=== PATIENT | female | born 1990 | race African-American/Black ===

== ENCOUNTER 2019-06-03 11:03 | Emergency (ER) | payer SELFPAY ==
[2019-06-03] MEDS ORDERED: Lorazepam 2 MG/ML VIAL ONE (11:22)
[2019-06-03] MEDS ORDERED: Fentanyl 100 MCG/2 ML VIAL ONE (11:22)
--- NOTE | 2019-06-03 12:15 | ULT ---
PELVIC SONOGRAM TRANSABDOMINAL AND TRANSVAGINAL IMAGING WITH DUPLEX EVALUATION: Date: 06/03/19 HISTORY: Pelvic pain and bleeding. FINDINGS: Urinary bladder is incompletely distended. Uterus has a heterogeneous echotexture and measures up to 7.6 cm. No intrauterine gestational sac visible. Endometrium is 0.3 cm. No free fluid. Each ovary has a normal appearance with small follicles and good color and spectral Do ppler flow. IMPRESSION: No evidence of intrauterine gestation. No abnormalities are demonstrated. POS: [facility]
[2019-06-04 19:13] LABS: Chlamydia by PCR Not Detected (NotDetected); GC by PCR Not Detected (NotDetected)
== END 2019-06-03 13:12 | disposition home or self-care (01) ==
LOC: ERS 11:03
DX: R10.2 Pelvic and perineal pain (principal); R10.31 Right lower quadrant pain
CPT/HCPCS: 76856; 87480; 87491; 87510; 87591; 87660; 96374; J2060; J3010

== ENCOUNTER 2019-08-26 04:01 | Emergency (ER) | payer SELFPAY ==
[2019-08-26] MEDS ORDERED: Morphine 4 MG/ML VIAL ONE (04:09)
[2019-08-26] MEDS ORDERED: Ondansetron PF 4 MG/2 ML Vial ONE (04:09)
--- NOTE | 2019-08-26 07:28 | ULT ---
PRELIMINARY REPORT/[facility]/AFTER HOURS PROCEDURE RIGHT UPPER QUADRANT LIMITED ABDOMEN ULTRASOUND: CLINICAL HISTORY: Epigastric pain, N/V. TECHNIQUE: Real-time ultrasound of the right upper quadrant with image documentation. COMPARISON: None provided. FINDINGS: LIVER: Unremarkable. Measures 16.7 cm. GALLBLADDER: No gallstone. No wall thickening. No pericholecystic fluid. Gallbladder sludge is noted with a negative sonographic Hogan sign. COMMON BILE DUCT: No dilation. Measures 2.8 mm. PANCREAS: Partially obscured by overlying bowel gas. RIGHT KIDNEY: Unremarkable. No hydronephrosis. Measures 9.6 cm. IMPRESSION: Gallbladder sludge with no evidence for acute cholecystitis. ELECTRONICALLY SIGNED BY: Ji Abreu MD Aug 26, 2019 4:53:11 AM ESTIMATOR This report is intended for review by the ordering physician only, in accordance of law. If you recei ve this report in error, please call [facility] at [phone]. FINAL REPORT EMERGENCY/AFTER HOURS: ULTRASOUND ABDOMEN LIMITED: (RIGHT UPPER QUADRANT) 08/26/2019 HISTORY: 28-year-old female with epigastric pain, nausea, and emesis. FINDINGS: Gallbladder: Normal wall thickness. No gallstones or sludge identified. No pericholecystic fluid. Liver: Normal parenchymal echogenicity. Right kidney: No hydronephrosis. Pancreas: Visualized, with no gross sonographic abnormality identified (although ultrasound is relati vely insensitive for the detection of pancreatic pathology compared to CT and MRI.). Common duct caliber: 2 mm. No major disagreement with preliminary report by [facility]. IMPRESSION: Normal. CODE QA Transcribed Date/Time: 08/26/2019 8:39 AM
== END 2019-08-26 05:27 | disposition home or self-care (01) ==
LOC: ERS 04:01
DX: K80.20 Calculus of gallbladder without cholecystitis without obstruction (principal)
CPT/HCPCS: 76705; 96374; 96375; J2270; J2405

== ENCOUNTER 2019-08-30 16:54 | Inpatient (IN) | payer SELFPAY ==
[2019-08-30] MEDS ORDERED: Ondansetron PF 4 MG/2 ML Vial SLOW IVP PRN (17:24)
[2019-08-30] MEDS: D5 1/2 NS w/20 mEq KCL 1,000 ML IV SCH (18:14)
[2019-08-30] MEDS: ceFOXitin 2 GM/50 ML Duplex BAG IVPB SCH (18:14)
[2019-08-30 18:29] VITALS: BMI 29.2
[2019-08-30] MEDS: Morphine 4 MG/ML VIAL SLOW IVP PRN (19:03)
[2019-08-30] MEDS: Morphine 2 MG/ML SYRINGE SLOW IVP PRN (21:54)
[2019-08-31] MEDS ORDERED: Morphine 4 MG/ML VIAL IM PRN (00:57)
[2019-08-31] MEDS ORDERED: Morphine 2 MG/ML SYRINGE IM PRN (00:57)
[2019-08-31] MEDS ORDERED: HYDROcodone/Acetaminophen 10/325 mg Tablet PO SCH (01:00)
[2019-08-31] MEDS: ceFOXitin 2 GM/50 ML Duplex BAG IVPB SCH (01:35)
[2019-08-31 03:19] VITALS: BP 127/69; TEMP 98
[2019-08-31] MEDS: Morphine 4 MG/ML VIAL SLOW IVP PRN (03:26)
[2019-08-31] MEDS: D5 1/2 NS w/20 mEq KCL 1,000 ML IV SCH (03:26)
[2019-08-31 05:47] LABS: ALT (SGPT) 7 U/L (8-55); AST (SGOT) 12 U/L (5-34); Albumin 3.6 g/dL (3.5-5.0); Alkaline Phosphatase 49 U/L (40-110); Bilirubin, Direct 0.1 mg/dL (0.1-0.3); Bilirubin, Total 0.3 mg/dL (0.2-1.2); Protein, Total 6.4 g/dL (6.0-8.3)
[2019-08-31] MEDS: Morphine 2 MG/ML SYRINGE SLOW IVP PRN (06:43)
[2019-08-31] MEDS ORDERED: ceFOXitin 2 GM/50 ML Duplex BAG ONE (09:50)
[2019-08-31] MEDS ORDERED: Rocuronium Bromide 10 MG/ML (10ML VIAL) ONE (10:17)
[2019-08-31] MEDS ORDERED: Glycopyrrolate 0.2 MG/ML 5 ML SYRINGE ONE (10:17)
[2019-08-31] MEDS ORDERED: Dexamethasone 20 MG/5 ML VIAL ONE (10:17)
[2019-08-31] MEDS ORDERED: Ondansetron PF 4 MG/2 ML Vial ONE (10:17)
[2019-08-31] MEDS ORDERED: Ketorolac Tromethamine 30 MG/ML VIAL ONE (10:17)
[2019-08-31] MEDS ORDERED: PROPOFOL 200 MG/20 ML VIAL ONE (10:17)
[2019-08-31] MEDS ORDERED: Lidocaine 1% PF 5 ML VIAL ONE (10:17)
[2019-08-31] MEDS ORDERED: Fentanyl 100 MCG/2 ML VIAL ONE ×3 (10:20→11:58)
[2019-08-31] MEDS ORDERED: Lidocaine 1% w/Epinephrine 1:100K 20 ML VIAL ONE (10:37)
[2019-08-31] MEDS ORDERED: Bupivacaine 0.25% HCL 30 ML VIAL ONE (10:37)
[2019-08-31] MEDS ORDERED: Calcium Carbonate 500 MG ChewTAB PO PRN (11:41)
[2019-08-31] MEDS ORDERED: Ondansetron PF 4 MG/2 ML Vial IVP PRN (11:41)
[2019-08-31] MEDS ORDERED: Dextrose 50% Abboject 50 ML SYRINGE SLOW IVP PRN (11:41)
[2019-08-31] MEDS ORDERED: Morphine 4 MG/ML VIAL SLOW IVP PRN (11:41)
[2019-08-31] MEDS ORDERED: Promethazine HCl 25 MG/ML VIAL IM PRN ×2 (11:41→11:54)
[2019-08-31] MEDS ORDERED: hydrALAZINE 20 MG/ML VIAL SLOW IVP PRN (11:41)
[2019-08-31] MEDS ORDERED: Dextrose 5% in Water 1,000 ML IV PRN (11:41)
[2019-08-31] MEDS ORDERED: Mag-Al 1200 mg/1200 mg/30 ML UDCUP PO PRN (11:41)
[2019-08-31] MEDS ORDERED: Morphine 2 MG/ML SYRINGE SLOW IVP PRN (11:41)
[2019-08-31] MEDS ORDERED: D5 1/2 NS w/20 mEq KCL 1,000 ML IV SCH (11:45)
[2019-08-31] MEDS ORDERED: SUGAMMADEX SODIUM 200 MG/2 ML VIAL ONE (11:48)
[2019-08-31] MEDS ORDERED: Ondansetron HCl/PF 4 MG/2 ML Vial IVP PRN (11:54)
[2019-08-31] MEDS ORDERED: Meperidine HCl/PF 25 MG/ML VIAL SLOW IVP PRN (11:54)
[2019-08-31] MEDS ORDERED: Promethazine HCl 25 MG/ML VIAL SLOW IVP PRN (11:54)
[2019-08-31] MEDS ORDERED: Ketorolac Tromethamine 30 MG/ML VIAL IVP SCH (12:00)
--- NOTE | 2019-08-31 13:20 | HP ---
CHIEF COMPLAINT: Right upper quadrant abdominal pain. HISTORY OF PRESENT ILLNESS: The patient is a 28-year-old female, who reports a 10-day history of right upper quadrant pain radiating to the back associated with nausea and vomiting. She came to the emergency room, where an ultrasound showed multiple cholelithiasis. She denies dark urine or light stools. PAST MEDICAL HISTORY: She is otherwise healthy. PAST SURGICAL HISTORY: She has had a section. MEDICATIONS: None. ALLERGIES: SHE HAS AN ALLERGY TO TRAMADOL. SOCIAL HISTORY: She is single. Unemployed. Smokes 1 pack per week. No alcohol. FAMILY HISTORY: Noncontributory. PHYSICAL EXAMINATION: VITAL SIGNS: Temperature 98, pulse 60, and blood pressure 127/69. GENERAL: Well-developed, well-nourished female, in no apparent distress. HEENT: No jaundice. LUNGS: Clear. HEART: Regular rate and rhythm. ABDOMEN: Soft and nondistended. She is tender in the right upper quadrant. No palpable mass. EXTREMITIES: Unremarkable. LABORATORY DATA: Her white count is 9.8, H and H 11 and 36, and platelet count 237. Electrolytes are fine, elevated glucose at 109. Liver function tests are normal. Urinalysis 11 to 20 white cells per high-power field. Ultrasound shows gallbladder sludge. ASSESSMENT: Acute cholecystitis. PLAN: Laparoscopic cholecystectomy. CONSENT: I have discussed the planned procedure as well as risk of bleeding, infection, injury to bile duct, injury to bowel, and need to open. She understands and gives informed consent. Job ID: [id number]
[2019-08-31] MEDS ORDERED: HYDROcodone/Acetaminophen 5/325 mg Tablet PO PRN ×2 (13:59)
--- NOTE | 2019-08-31 15:25 | OP ---
DATE OF PROCEDURE: 08/31/2019 PREOPERATIVE DIAGNOSIS: Cholecystitis. PROCEDURE PERFORMED: Laparoscopic cholecystectomy. INDICATIONS: A 28-year-old female with a 10-day history of right upper quadrant pain, worse after eating, radiating to back associated with nausea, vomiting. Ultrasound showed sludge in the gallbladder, distended gallbladder. FINDINGS: Distended gallbladder, multiple adhesions to the gallbladder, small caliber cystic duct. DESCRIPTION OF PROCEDURE: After informed consent was obtained, patient was taken to the operating room and given general endotracheal anesthesia, placed in supine position. Abdomen was prepped and draped in usual fashion. Local anesthesia infiltrated subcutaneously and deep and a subumbilical incision was performed. Subcu divided sharply. The fascia was grasped. Two stay sutures of 0 Vicryl placed through side of midline, midline incised. Digital palpation revealed no local adhesions. A blunt 12 mm trocar inserted. Pneumoperitoneum was created to a pressure of 15 mmHg. A 0 degree laparoscope inserted under direct vision. Three 5 mm ports placed subcostally. The gallbladder was grasped and advanced superiorly. Multiple adhesions were taken down from the gallbladder. The peritoneum was opened. The cystic duct artery and critical view were dissected out. The duct was triply ligated and divided. The artery triply ligated and divided. The artery had two branches and had to put another clip on that second branch. Hemostasis was assured. The gallbladder removed from its fossa utilizing electrocautery, removed from the abdomen through the umbilical port, sent to Pathology for further analysis. Hemostasis was assured. The abdomen irrigated. Irrigation fluid removed. The fascia closed with interrupted 0 Vicryl suture, the skin closed with interrupted 4-0 Rapide. Dermabond applied. The patient tolerated the procedure well, transferred to recovery in good condition. Sponge and needle count verified correct x2. Job ID: [id number]
[2019-08-31] MEDS ORDERED: cefOXitin Sodium/Dextrose,Iso 2 GM in Premix Bag 1 BAG IVPB SCH (18:00)
[2019-08-31] MEDS ORDERED: Famotidine 20 MG TAB PO SCH (21:00)
[2019-08-31] MEDS ORDERED: Famotidine/PF 20 mg/2ml Vial SLOW IVP SCH (21:00)
--- NOTE | 2019-09-01 02:14 | DIS ---
DATE OF ADMISSION: 08/30/2019 DATE OF DISCHARGE: 08/31/2019 DISCHARGE DIAGNOSIS: Severe biliary colic. PROCEDURES DURING ADMISSION: Laparoscopic cholecystectomy. HOSPITAL COURSE: The patient was admitted, given IV fluids and pain medicine, antibiotics, taken to the operating room where she underwent a laparoscopic cholecystectomy. She was found to have extensive adhesions to the gallbladder, distention of the gallbladder. Postoperatively, she has done well. She is tolerating liquids. She has had a bowel movement. Pain is controlled. She would like to go home. She is discharged home on hydrocodone and Zofran. She will follow up with me in 2 weeks. Job ID: [id number]
[2019-09-01] MEDS ORDERED: Enoxaparin Sodium 40 MG/0.4 ML SYRINGE SC SCH (09:00)
== END 2019-08-31 14:37 | disposition home or self-care (01) | DRG 419 ==
LOC: SURG A 16:54
PROVIDERS: ADMIT Surgery; ATTEND Surgery
PROC: 0FT44ZZ Resection of Gallbladder, Percutaneous Endoscopic Approach (ICD-10-PCS; principal; 2019-08-31)
DX: K80.62 Calculus of gallbladder and bile duct with acute cholecystitis without obstruction (principal); F17.210 Nicotine dependence, cigarettes, uncomplicated; Z88.5 Allergy status to narcotic agent
CPT/HCPCS: 36415; 80076; 88304; J0694; J1100; J1885; J2001; J2270; J2405; J2704; J3010; S0020

== ENCOUNTER 2019-09-06 10:05 | Observation (INO) | payer SELFPAY, OTHER ==
[2019-09-06] MEDS ORDERED: Fentanyl 100 MCG/2 ML VIAL ONE (11:04)
[2019-09-06] MEDS ORDERED: Ketorolac Tromethamine 30 MG/ML VIAL ONE (11:04)
[2019-09-06] MEDS ORDERED: Ondansetron PF 4 MG/2 ML Vial ONE (11:04)
[2019-09-06 11:15] LABS: Troponin I Less than 0.010 ng/mL (< 0.028)
--- NOTE | 2019-09-06 11:49 | CT ---
CT ANGIOGRAM THORAX WITH CONTRAST: (CTA pulmonary angiogram) DATE: 09/06/2019 HISTORY: 28-year-old female with elevated d-dimer and chest pain. TECHNIQUE: IV injection of iodinated contrast. Scan acquisition timing attempted to coincide with iodinated contrast bolus reaching maximal density in pulmonary arteries. 3-D MIP reconstructions. FINDINGS: Pulmonary thromboembolism: None. Lungs: Clear. Pneumothorax: None. Pleural effusion: None. Thoracic aorta: No aneurysm or dissection. Mediastinum: No lymphadenopathy or other mass. Rosario: No lymphadenopathy or other mass. Bones: Old left distal clavicular shaft fracture deformity. IMPRESSION: 1. No pulmonary thromboembolism. 2. Old, healed left distal clavicular shaft fracture deformity. 3. Otherwise normal.
--- NOTE | 2019-09-06 12:16 | PDOC.FPRHP ---
- History of Present Illness Chief Complaint: Epigastric Pain History of Present Illness: Pt is 28 yo F with recent pj hansen who presents with sharp epigastric pain that started at 3 am this morning. She awoke from sleep. There is no radiation, no change in pain with position, no OTC meds. It was 10/10 and she said she was in tears. She says she has been having this pain off and on for 3 months. She does not know how long the episodes last, but says she usually goes to the ER when she develops the pain. She was transferred by EMS to the ER in [place]. She was given Morphine in [place] and the pain went away. It has come back and her pain level is 3/10. Pj Hansen on 08/[address] Philip. ED Course: ED gave Zofran, toradol, and fentynl, which brought her some relief. Ddimer was 1.35 and CTA was negative. - Allergies/Adverse Reactions Allergies Allergy/AdvReac Type Severity Reaction Status Date / Time tramadol Allergy Hives Verified 08/30/19 18:34 - Home Medications Medication Instructions Recorded Confirmed Type HYDROcodone/Acetaminophen [[place]wall 1 - 2 each PO Q6H PRN 08/31/19 09/06/19 History 5-325 Tablet] Ondansetron [Zofran ODT] 4 mg PO Q4HR PRN 08/31/19 09/06/19 History - History PMHx: None PSHx: Csec x1, Luisa FHx: None Social: No tobacco currently, smoke 7 years ago 1PPD for 2 years. No alcohol, No recreational drugs. - Review of Systems General: denies: fever/chills ENT: denies: nasal congestion, rhinorrhea Respiratory: denies: congestion, shortness of breath Cardiovascular: denies: chest pain, edema Gastrointestinal: reports: nausea, vomiting (Vomited 2x around 6), diarrhea ( around 6 am, last normal 3 days ago, watery, no blood). denies: constipation, abdominal pain Genitourinary: denies: dysuria Skin: denies: rashes Musculoskeletal: denies: pain, stiffness Neurological: denies: numbness, weakness - Vital signs BP: 121/74 HR: 48 RR: 19 Tmax: 98.5 Pox:98% on RA Wt: 68 kg - Physical Exam Constitutional: NAD HEENT: normocephalic and atraumatic, PERRLA, no scleral icterus, normal nasal mucosa, MMM, oropharynx clear Neck: supple, FROM Heart: normal S1/S2, no murmurs/rubs/gallops -Heart: bradycardic, with regular rate Lungs: CTAB Abdomen: soft, non-tender, bowel sounds present Musculoskeletal: normal structure, normal tone Neurological: no focal deficit, normal sensation Skin: no rash/lesions Heme/Lymphatic: no unusual bruising or bleeding Psychiatric: normal mood and affect FMR H&P: Results - EKG Interpretation EKG: T wave inversions in II and AVF FMR H&P: A/P - Problem List (1) Chest pain, rule out acute myocardial infarction Current Visit: Yes Status: Acute Code(s): R07.9 - CHEST PAIN, UNSPECIFIED (2) Abdominal pain Current Visit: Yes Status: Acute Code(s): R10.9 - UNSPECIFIED ABDOMINAL PAIN (3) Trichomonal infection Current Visit: Yes Status: Acute (4) Bacterial vaginal infection Current Visit: Yes Status: Acute Code(s): N76.0 - ACUTE VAGINITIS; B96.89 - OTH BACTERIAL AGENTS THE CAUSE OF DISEASES CLASSD ELSWHR - Plan Pt is a 28 yo F with recent cholecystectomy who present for recurrent, intermittent, epigastric abdominal pain. 1. Abdominal Pain Epigastric without radiation, occurs at rest * EKG shows Twave inversions in II & AVF * Trops neg x2 * D-Dimer: 1.35 (elevated), CTA Negative * Given Zofran and Fentanyl in the ED, which improved pain * Stress & ECHO ordered * Mag, Phos, Lipid Panel, & A1C Ordered * H pylori stool ordered * GI cocktail added and zofran prn * Notified Dr. Philip 2. Trichomonasis & BV Present in Urine, no dysuria present -Treating with Metro 500 mg BID for 7 days Code Status: Full Diet: HHLSo Activity: Ad Nahomi DVT PPx: Lovenox, SCDs GI PPx: Pepcid PCP: CC Dispo: Tele obs, LOS < 48H. Will r/o possible cardiac causes. FMR H&P: Upper Level - Pertinent history 28 yo f with midepigastric pain, pod 7 from lap luisa, with normal lipase, mild leukocytosis, afebrile, normal abdominal CT and CTA chest, admitted for mid epigastric abdominal pain vs atypical chest pain with t wave inversions. Troponins x 2 negative. Will stress in the am. Consider outpatient EGD for midepigastric pain. Ordered an H. pylori, denied frequent nsaid use. Abdominal exam soft, mildly tender to palpation, but appropriately tender s/p luisa. Will obs overnight and stress in am. H. MD Ángel, PGY-3 - Plan Date/Time: 09/06/19 1213 I, [], have evaluated this patient and agree with findings/plan as outlined by contracts intern resident. Pertinent changes/additions are listed here. Addendum - Attending - Attending Attestation Date/Time: 09/06/19 [id number] I personally evaluated the patient and discussed the management with Dr. Aburto. I agree with the History, Examination, Assessment and Plan documented above with any addition or exceptions noted below. The patient presents with the ER with epigastric pain. She had a lap luisa over a week ago. She was found to have inverted t-waves on ekg. The patient's cardiac enzymes are negative. Patient is tender to palpation in the epigastric region. Bowel sounds are present. She had a cta which was negative. Will trend cardiac enzymes. Will get a stress test. Check H. pylori, try gi cocktail. Patient has had persistent epigastric pain for weeks. Will likely get a GI consult for egd.
[2019-09-06] MEDS ORDERED: Acetaminophen 325 MG TAB PO PRN (12:42)
[2019-09-06] MEDS ORDERED: Ondansetron PF 4 MG/2 ML Vial IVP PRN (12:42)
[2019-09-06] MEDS ORDERED: Ondansetron ODT 4 MG TAB PO PRN (12:42)
[2019-09-06] MEDS ORDERED: Lidocaine 2% Viscous Solution 20 ML, Aluminum & Magnesium Hydroxide 30 ML, Donnatal Eli... SSW SCH ×2 (13:30→21:00)
[2019-09-06 14:02] LABS: Hemoglobin A1c 5.3 % (4.0-6.0)
[2019-09-06 14:15] LABS: Troponin I Less than 0.010 ng/mL (< 0.028)
[2019-09-06 14:29] LABS: Magnesium 1.7 mg/dL (1.6-2.6); Phosphorus 2.8 mg/dL (2.3-4.7)
[2019-09-06] MEDS ORDERED: Iopamidol-370 76% 500 ML 1 ML ONE (15:15)
[2019-09-06 15:41] VITALS: BMI 29.3
[2019-09-06 17:38] LABS: Troponin I Less than 0.010 ng/mL (< 0.028)
[2019-09-06] MEDS: metroNIDAZOLE 500 MG TAB PO SCH (20:00)
[2019-09-06] MEDS: Famotidine 20 MG TAB PO SCH (20:00)
[2019-09-07 05:28] LABS: Cardiac Risk 3.5 (Less than 4.5)
[2019-09-07] MEDS ORDERED: Pantoprazole 40 MG VIAL IVP SCH (05:30)
[2019-09-07 05:56] LABS: Band 2 % (5-11); Hemoglobin 10.2 g/dL (12.0-16.0); Lymphocytes 19 % (21-51); MDiff Complete? YES; Mean Corpuscular HGB CONC 30.9 g/dL (32.0-36.0); Mean Corpuscular Hemoglobin 29.2 pg (27.0-31.0); Mean Corpuscular Volume 94.7 fL (78.0-98.0); Mean Platelet Volume 9.5 fL (7.4-10.4); Monocytes 13 % (0-10); Neutrophil 66 % (42-75); Platelet Count 273 thou/uL (130-400); RBC Distribution Width 14.7 % (11.5-14.5); Red Blood Cell (RBC) Count 3.49 mill/uL (4.20-5.40); White Blood Cell (WBC) Count 7.3 thou/uL (4.8-10.8)
--- NOTE | 2019-09-07 06:33 | PDOC.FM ---
- Subjective Subjective: Abdominal pain returned overnight, 05/14. Given GI cocktail and Protonix. Pain resolved. Denies shortness of breath, chest pain. - Objective MAR Reviewed: Yes Vital Signs & Weight: Vital Signs (12 hours) Temp Pulse Resp BP Pulse Ox 09/07/19 03:52 98.6 F 66 16 159/83 H 100 09/06/19 23:52 97.7 F 53 L 16 144/73 H 99 09/06/19 23:14 99 09/06/19 18:47 99.0 F 52 L 14 155/74 H 98 Weight Weight 61.008 kg I&O: 09/05/19 09/06/19 09/07/19 06:59 06:59 06:59 Intake Total 650 Output Total 300 Balance 350 Result Diagrams: 09/07/19 04:45 Phys Exam - Physical Examination Constitutional: NAD HEENT: moist MMs Neck: supple Respiratory: no wheezing, clear to auscultation bilateral Cardiovascular: RRR, no significant murmur tender over incision site. No epigastric pain Musculoskeletal: no edema Neurological: moves all 4 limbs Psychiatric: normal affect, A&O x 3 Skin: normal turgor Dx/Plan - Plan Plan: Gastritis vs Peptic Ulcer vs atypical chest pain - Pain improved with Fentanyl - EKG: T-wave inversions in II & AVF - Trops neg x3 - D-Dimer elevated, CTA Negative - Stress & echo ordered - H pylori stool pending Trichomonasis & BV - Flaygl 500mg BID x7 days Code Status: Full DVT PPx: Lovenox
[2019-09-07] MEDS ORDERED: Enoxaparin Sodium 40 MG/0.4 ML SYRINGE SC SCH (09:00)
[2019-09-07] MEDS ORDERED: Aspirin 325 mg Enteric Coated Tablet PO SCH (09:00)
[2019-09-07] MEDS: Famotidine 20 MG TAB PO SCH (10:35)
[2019-09-07] MEDS: metroNIDAZOLE 500 MG TAB PO SCH (10:35)
--- NOTE | 2019-09-07 11:08 | PRG ---
DATE OF SERVICE: 09/07/2019 SUBJECTIVE: Ms. Kate is a 28-year-old female who was admitted with some epigastric and chest pain. She is currently undergoing a stress Myoview. She had a cholecystectomy one week ago and is still having epigastric pain. May be a good idea to go ahead and consult GI while she is in the hospital as she has made numerous trips to the ER with her epigastric pain. I would also recommend we check a gallbladder ultrasound to ensure there are no stray stones in her biliary tree given that her original diagnosis was biliary sludge. We will continue with her PPI and check her for H. pylori. Job ID: [id number]
--- NOTE | 2019-09-07 11:20 | NM ---
NUCLEAR MEDICINE CARDIAC MYOCARDIAL PERFUSION SPECT EJECTION FRACTION STUDY WALL MOTION CINE: DATE: 09/07/2019 HISTORY: 28-year-old female with chest pain TECHNIQUE: Number of days: 2 Rest study: Technetium 99m-sestamibi (Cardiolite) dose: 27.4 mCi Pharmacologic stress: Adenosine dose: 34.2 mg Stress study: Technetium 99m-sestamibi (Cardiolite) dose: 30.6 mCi FINDINGS: CARDIAC (MYOCARDIAL PERFUSION) SPECT There are no reversible myocardial perfusion defects. EJECTION FRACTION STUDY Left ventricular EF = 72 % WALL MOTION CINE Normal IMPRESSION: No evidence of reversible ischemia.
[2019-09-07] MEDS ORDERED: ADENOSINE 60 MG/20 ML VIAL ONE (12:12)
[2019-09-07 12:27] VITALS: BP 148/71; TEMP 98.7
--- NOTE | 2019-09-07 13:08 | PDOC.BPN ---
- Brief Progress Note Was paged by nurse for patient requesting to leave. I went up and evaluated the patient and discussed her concerns. She feels that we have done many labs and tests without being given her results. I reassured her that many of the tests we ordered take time to be read. I went over the results that we do have at the current moment and reassured her that we are doing our best to get her taken care of efficiently and appropriately. She was adamant that we were not doing enough, quickly enough. She stated she was leaving AMA to go to [facility] to have a better work up done. I counseled her that this is against medical advice and that we would really like to continue working her up, she acknowledged and stated she was still leaving. Finn Rojas MD
[2019-09-08] MEDS ORDERED: Pantoprazole 40 MG VIAL IVP SCH (09:00)
--- NOTE | 2019-09-08 20:00 | DIS ---
DATE OF ADMISSION: 09/06/2019 DATE OF DISCHARGE: 09/07/2019 RESIDENT: Emily Hartman, PGY-2. ADMITTING ATTENDING: Aleshia Hill MD DISCHARGE ATTENDING: Eric Moise MD CONSULT: None. PROCEDURES: 1. Chest CTA, no pulmonary embolism. Old healed left distal clavicular shaft fracture deformity. 2. Nuclear stress test on 09/06/2019, negative for reversible ischemia. 3. Echocardiogram on 09/07/2019, EF 55% to 60%. Normal right ventricular size and function. Trace tricuspid regurgitation. PRIMARY DIAGNOSIS: 1. Abdominal pain, unknown etiology. 2. Trichomonas and bacterial vaginosis. DISCHARGE MEDICATIONS: The patient left AMA. PRIMARY CARE PHYSICIAN: Romulo Christensen DO. HISTORY OF PRESENT ILLNESS/HOSPITAL COURSE: Ms. Kate is a 28-year-old female who recently underwent laparoscopic cholecystectomy on 08/30, by Dr. Philip, who presents with sharp epigastric pain. She has been in the emergency room multiple times for this abdominal pain. She was worked up for a cardiac cause due to her EKG showing T-wave inversion in II and AVF. Her troponins were negative x3. She did have an elevated D-dimer; therefore, CT was performed which was negative. She was given Zofran and fentanyl in the ED, which improved her pain. She had a negative stress test and an unremarkable echo. Her enzymes were normal and H pylori had not been collected prior to her leaving AMA. Dr. Philip was notified and GI was consulted. Dr. Philip also recommended GI consult. She left prior to their evaluation. She also left prior to right upper quadrant ultrasound. In regard to Trichomonas and bacterial vaginosis, this was present in the urine, she was asymptomatic, so she is being treated with metronidazole 500 mg b.i.d. x7 days. On the morning of 09/07/2019, the patient became upset that workup was not happening quick enough and wanted to leave AMA to go to [facility] for workup. Dr. Rojas went to the bedside to evaluate the patient and noted to have normal mental status and adequate capacity to make decisions. She refused to stay for the hospital admission and requested to be discharged. The risks and benefits were explained to the patient including worsening of illness, worsening pain, and possibly anything to and possibly including . The patient voiced understanding. The patient was given opportunities to ask questions about her medical condition and all questions were answered to the best of their ability. Followup has been discussed and the patient was discharged with metronidazole for treatment of the bacterial vaginosis. Job ID: [id number]
== END 2019-09-07 12:56 | disposition left against medical advice (07) ==
LOC: ERS 10:05 → ERHOLD 13:49 → 2SW 15:42
PROVIDERS: ADMIT Family Medicine; ATTEND Family Medicine
DX: R10.13 Epigastric pain (principal); R07.9 Chest pain, unspecified; A59.01 Trichomonal vulvovaginitis; N76.0 Acute vaginitis; Z87.891 Personal history of nicotine dependence; Z88.5 Allergy status to narcotic agent
CPT/HCPCS: 36415; 71275; 78452; 80061; 83036; 83690; 83735; 84100; 84443; 85007; 85027; 85379; 93005; 93010; 93017; 93306; 94760; 96361; 96372; 96374; 96375; A9500; C9113; G0378; J0153; J1650; J1885; J2405; J3010; Q9967

== ENCOUNTER 2022-04-19 11:38 | Emergency (ER) | payer SELFPAY ==
[2022-04-19 12:19] LABS: #Lymphocytes 0.9 thou/uL (1.20-3.40); #Monocytes 0.5 thou/uL (0.11-0.59); #Neutrophils 7.4 thou/uL (1.40-6.50); %Basophils 0.5 % (0.0-1.0); %Eosinophils 0.1 % (0.0-10.0); %Lymphocytes 9.9 % (21.0-51.0); %Monocytes 6.1 % (0.0-10.0); %Neutrophils 83.4 % (42.0-75.0); Hemoglobin 12.1 g/dL (12.0-16.0); Mean Corpuscular HGB CONC 31.6 g/dL (32.0-36.0); Mean Corpuscular Hemoglobin 31.8 pg (27.0-31.0); Mean Platelet Volume 9.8 fL (7.4-10.4); Platelet Count 207 thou/uL (130-400); RBC Distribution Width 13.8 % (11.5-14.5); Red Blood Cell (RBC) Count 3.81 mill/uL (4.20-5.40); White Blood Cell (WBC) Count 8.9 thou/uL (4.8-10.8)
[2022-04-19 12:47] LABS: ALT (SGPT) 12 U/L (8-55); AST (SGOT) 17 U/L (5-34); Albumin 4.4 g/dL (3.5-5.0); Alkaline Phosphatase 61 U/L (40-110); Anion Gap 13 mmol/L (10-20); BUN (Urea Nitrogen) 8 mg/dL (7.0-18.7); Bilirubin, Total 0.4 mg/dL (0.2-1.2); Calc. Creatinine Clearance 0 mL/min (70-130); Calcium 9.5 mg/dL (7.8-10.44); Carbon Dioxide 22 mmol/L (22-29); Chloride 106 mmol/L (98-107); Estimated GFR 117; Globulin 3.3 g/dL (2.4-3.5); Glucose 129 mg/dL (70-105); Potassium 4.4 mmol/L (3.5-5.1); Protein, Total 7.7 g/dL (6.0-8.3); Sodium 137 mmol/L (136-145)
[2022-04-19 13:32] LABS: Bacteria/HPF 2+ HPF (None Seen); Bilirubin Negative (Negative); Blood, Urine Negative (Negative); Clarity Turbid (Clear); Glucose, Urine (Dipstick) Normal (Negative); Ketone, Urine Negative (Negative); Leukocyte Negative Leu/uL (Negative); Nitrite 2+ (Negative); Protein, Urine (Dipstick) 20 mg/dL (Neg-Trace); RBC/HPF 0-3 HPF (0-3); Specific Gravity, Urine 1.013 (1.002-1.036); Squamous Epithelial 0-3 HPF (0-3); Urobilinogen Normal mg/dL (Less than 2); WBC/HPF 0-3 HPF (0-3); pH, Urine 7.5 (5.0-9.0)
[2022-04-19 13:34] LABS: Pregnancy Test - Urine (BHCG) Negative (Negative); Pregu Control Background? CLEAR/WHITE (CLR/WHITE); Pregu Control Bar Appear? YES (CONTROL BAR); Specific Gravity 1.013 (1.002-1.036)
[2022-04-19] MEDS ORDERED: Iopamidol-370 76% 500 ML 1 ML ONE (14:44)
== END 2022-04-19 15:10 | disposition home or self-care (01) ==
LOC: ERS 11:38
DX: N83.201 Unspecified ovarian cyst, right side (principal); N39.0 Urinary tract infection, site not specified
CPT/HCPCS: 36415; 74177; 80053; 81003; 81015; 81025; 83690; 83880; 85025; 86140; 93005; Q9967

== ENCOUNTER 2023-01-16 09:20 | Emergency (ER) | payer SELFPAY ==
[2023-01-16 10:17] LABS: Bilirubin Negative (Negative); Blood, Urine Negative (Negative); CAUTI Indications for Culture Pelvic or flank pain; Clarity Turbid (Clear); Glucose, Urine (Dipstick) Normal (Negative); Ketone, Urine Negative (Negative); Leukocyte 250 Leu/uL (Negative); Nitrite Negative (Negative); Pregnancy Test - Urine (BHCG) Negative (Negative); Pregu Control Background? CLEAR/WHITE (CLR/WHITE); Pregu Control Bar Appear? YES (CONTROL BAR); Protein, Urine (Dipstick) 20 mg/dL (Neg-Trace); RBC/HPF 0-3 HPF (0-3); Specific Gravity 1.029 (1.002-1.036); Specific Gravity, Urine 1.029 (1.002-1.036); Urobilinogen Normal mg/dL (Less than 2); pH, Urine 5.5 (5.0-9.0)
[2023-01-16 10:18] LABS: Bacteria/HPF 1+ HPF (None Seen)
[2023-01-16 10:19] LABS: Urine Culture Reflex Yes Yes
[2023-01-16 10:27] LABS: #Monocytes 0.7 thou/uL (0.11-0.59); %Basophils 0.4 % (0.0-1.0); %Eosinophils 0.3 % (0.0-10.0); %Lymphocytes 20.7 % (21.0-51.0); %Monocytes 9.8 % (0.0-10.0); %Neutrophils 68.5 % (42.0-75.0); Hemoglobin 10.7 g/dL (12.0-16.0); Mean Corpuscular HGB CONC 33.5 g/dL (32.0-36.0); Mean Corpuscular Hemoglobin 33.1 pg (27.0-31.0); Mean Corpuscular Volume 98.8 fl (78.0-98.0); Mean Platelet Volume 11.4 fL (7.4-10.4); Platelet Count 225 10x3/uL (130-400); RBC Distribution Width 14.6 % (11.5-14.5); Red Blood Cell (RBC) Count 3.23 mill/uL (4.20-5.40); White Blood Cell (WBC) Count 7.3 10x3/uL (4.8-10.8)
[2023-01-16] MEDS ORDERED: Ketorolac Tromethamine 30 MG/ML VIAL ONE (10:32)
[2023-01-16 10:50] LABS: ALT (SGPT) 18 U/L (8-55); AST (SGOT) 23 U/L (5-34); Albumin 4.1 g/dL (3.5-5.0); Alkaline Phosphatase 55 U/L (40-110); Anion Gap 10 mmol/L (10-20); BUN (Urea Nitrogen) 10 mg/dL (7.0-18.7); Bilirubin, Total 0.2 mg/dL (0.2-1.2); Calc. Creatinine Clearance 0 mL/min (70-130); Carbon Dioxide 25 mmol/L (22-29); Chloride 108 mmol/L (98-107); Estimated GFR 112; Globulin 2.9 g/dL (2.4-3.5); Glucose 118 mg/dL (70-105); Lipase 11 U/L (8-78); Potassium 3.2 mmol/L (3.5-5.1); Sodium 140 mmol/L (136-145)
[2023-01-16 10:57] LABS: Calcium 8.8 mg/dL (7.8-10.44)
== END 2023-01-16 10:59 | disposition left against medical advice (07) ==
LOC: ERS 09:20
DX: Z53.29 Procedure and treatment not carried out because of patient's decision for other reasons (principal)
CPT/HCPCS: 36415; 80053; 81001; 81025; 83690; 85025; 87086; 96374; J1885

== ENCOUNTER 2025-04-12 12:32 | Emergency (ER) | payer SELFPAY ==
[2025-04-12] MEDS ORDERED: Pantoprazole 40 MG VIAL ONE (12:56)
[2025-04-12] MEDS ORDERED: Famotidine/PF 20 mg/2ml Vial ONE (12:57)
[2025-04-12 13:37] LABS: #Basophils 0.04 10x3/uL (0.0-0.2); #Eosinophils Less than 0.03 10x3/uL (0.0-0.7); #Monocytes 0.70 10x3/uL (0.11-0.59); #Neutrophils 9.22 10x3/uL (1.40-6.50); %Basophils 0.4 % (0.0-1.0); %Eosinophils 0.0 % (0.0-10.0); %Lymphocytes 11.9 % (21.0-51.0); %Monocytes 6.2 % (0.0-10.0); %Neutrophils 81.1 % (42.0-75.0); Hematocrit 38.3 % (36.0-47.0); Hemoglobin 13.0 g/dL (12.0-16.0); Mean Corpuscular Hemoglobin 33.0 pg (27.0-31.0); Mean Corpuscular Volume 97.2 fL (78.0-98.0); Platelet Count 220 10x3/uL (130-400); Red Blood Cell (RBC) Count 3.94 mill/uL (4.20-5.40); White Blood Cell (WBC) Count 11.36 10x3/uL (4.8-10.8)
[2025-04-12 13:42] LABS: Bacteria/HPF None Seen HPF (None Seen); CAUTI Indications for Culture Dysuria,urgency,freq; Glucose, Urine (Dipstick) Normal (Negative); Leukocyte Negative Leu/uL (Negative); Protein, Urine (Dipstick) Negative (Neg-Trace); RBC/HPF 0-3 HPF (0-3); Specific Gravity, Urine 1.020 (1.002-1.036); WBC/HPF 0-3 HPF (0-3)
[2025-04-12 13:47] LABS: BHCG - Serum Negative (NEGATIVE); Pregs Control Background? CLEAR/WHITE (CLR/WHITE); Pregs Control Bar Appear? YES (CONTROL BAR)
[2025-04-12 13:52] LABS: ALT (SGPT) 37 U/L (Less than 34); AST (SGOT) 33 U/L (11-34); Albumin 3.6 g/dL (3.1-4.5); Alkaline Phosphatase 50 U/L (40-110); Anion Gap 11 mmol/L (10-20); BUN (Urea Nitrogen) 8 mg/dL (7.0-18.7); Bilirubin, Total 0.3 mg/dL (0.3-1.2); Calc. Creatinine Clearance 0 mL/min (70-130); Calcium 8.5 mg/dL (7.8-10.44); Carbon Dioxide 22 mmol/L (22-29); Chloride 109 mmol/L (98-107); Globulin 2.8 g/dL (2.4-3.5); Glucose 97 mg/dL (70-105); Lipase 13 U/L (8-78); Potassium 4.0 mmol/L (3.5-5.1); Sodium 138 mmol/L (136-145)
[2025-04-12 13:54] LABS: Urine Culture Reflex No No
== END 2025-04-12 16:13 | disposition home or self-care (01) ==
LOC: ERS 12:32
DX: R10.13 Epigastric pain (principal); F17.210 Nicotine dependence, cigarettes, uncomplicated
CPT/HCPCS: 80053; 81001; 83690; 84703; 85025; 93005; 96374; 96375; J1308; J2470